=== PATIENT | female | born 1965 | race Caucasian/White ===

== ENCOUNTER → 2020-01-04 | Outpatient (CLI) | payer OTHER ==
--- NOTE | 2020-01-05 10:54 | RADIOLOGY REPORT (SQ) ---
EXAM DESCRIPTION: FOOT LEFT 2 VIEWS IMAGES COMPLETED DATE/TIME: 01/04/2020 5:23 pm REASON FOR STUDY: PAIN IN LEFT FOOT M79.671 PAIN IN RIGHT FOOT M79.672 PAIN IN LEFT FOOT COMPARISON: None. NUMBER OF VIEWS: One view. TECHNIQUE: Lateral without weight bearing radiographic image acquired of the left foot. LIMITATIONS: None. FINDINGS: MINERALIZATION: Normal. BONES: No acute fracture or dislocation. No worrisome bone lesions. No significant osteophytes. JOINTS: No erosions. No lavinia-articular osteopenia. No chondrocalcinosis. SOFT TISSUES: There appears to be soft tissue swelling the ball of the foot. No radiopaque foreign b fede is seen. OTHER: No other significant finding. IMPRESSION: Soft tissue swelling. No radiopaque foreign body is seen. No osseous abnormality. TECHNICAL DOCUMENTATION: JOB ID: [id number] [employer]- All Rights Reserved Reading location - IP/workstation name: [email or web address]
== END ==
LOC: OD 16:31
PROVIDERS: ATTEND Podiatrist Foot & Ankle Surgery
DX: M79.671 Pain in right foot (principal)